=== PATIENT | female | born 1980 | race Caucasian/White ===

== ENCOUNTER 2018-08-09 09:50 | Outpatient (CLI) | payer BC | END 2018-08-09 09:51 | disposition home or self-care (01) | LOC: C.MAMMO 09:50 | DX: Z12.31 Encounter for screening mammogram for malignant neoplasm of breast (principal) ==

== ENCOUNTER 2018-08-11 08:38 | Outpatient (CLI) | payer BC | END 2018-08-11 08:39 | disposition home or self-care (01) | LOC: C.NUCMED 08:38 | DX: N28.89 Other specified disorders of kidney and ureter (principal) ==